=== PATIENT | male | born 1940 | race Caucasian/White ===

== ENCOUNTER → 2016-08-17 | Outpatient (CLI) | payer OTHER ==
--- NOTE | 2016-08-17 14:12 | CT ---
CT Chest Unenhanced History: Known ascending and descending thoracic aortic aneurysm. I71.9. Nonsmoker with no cancer hi story. Comparison: PA and lateral chest of February 12, 2016. CT angiogram chest from October 23, 2013. Technique: Axial unenhanced images were obtained through the chest. Coronal MIPs were performed. Dose reduction techniques were utilized. Findings: A benign 4-mm subpleural right upper lobe nodule (series 4 image 36) is unchanged. Scattere d scarring/atelectasis is unchanged. Moderate atherosclerosis is present in the LAD. Mild cardiomegal y is stable. Dual-lead left subclavian pacemaker leads overlie the right atrium and ventricle. Mitral annular calcifications are present. Minimal aortic valvular calcification is noted. Bovine arch conf iguration is noted. Aortic assessment is limited by the lack of contrast. The ascending aorta measure s 4.8 x 4.5 cm at the level of the main pulmonary artery, unchanged. The descending thoracic aorta at the same level measures 3.6 x 3.7 cm, unchanged. At the level of the celiac artery origin, the abdom inal aorta measures approximately 2.9 cm in maximal AP diameter, unchanged. A 1.6-cm subcutaneous nod ule in the anterior left shoulder (series 2 image 35) was outside the field of view on the previous s tudy. 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 Contiguous osteophytes in the thoracic spine are compatible with DISH. Bone island in T7 is again noted. A small hiatal hernia is present. Impression: 1. Stable aneurysmal dilatation of the ascending and descending thoracic aorta, with the ascending ao rta measuring up to 4.8 cm. 2. Coronary artery atherosclerosis in the LAD. 3. Indeterminate subcutaneous structure in the anterior left shoulder, possibly representing a sebace ous cyst. 4. Additional findings as above. Findings discussed with Dr. Vijay Randhawa's remote medical coder, August 17, 2016 at 1402 hours.
== END ==
LOC: CIMAGING 13:11
PROVIDERS: ATTEND Thoracic Surgery (Cardiothoracic Vascular Surgery)
DX: I71.2 Thoracic aortic aneurysm, without rupture (principal); I25.10 Atherosclerotic heart disease of native coronary artery without angina pectoris; R91.1 Solitary pulmonary nodule
CPT/HCPCS: 71250-PO

== ENCOUNTER 2016-10-20 06:38 | Day surgery (SDC) | payer OTHER ==
[2016-10-20] MEDS ORDERED: DIAZEPAM 5 MG TAB PO ONE (06:59)
[2016-10-20] MEDS ORDERED: FAMOTIDINE 20 MG TAB PO ONE (06:59)
[2016-10-20] MEDS ORDERED: diphenhydrAMINE 25 MG CAP PO ONE ×2 (06:59→07:10)
[2016-10-20] MEDS ORDERED: ASPIRIN EC 325 MG TAB PO ONE ×2 (06:59→07:10)
[2016-10-20] MEDS ORDERED: NS 1,000 ML IV ONE (06:59)
[2016-10-20] MEDS ORDERED: FAMOTIDINE 20 MG TAB ONE (07:10)
[2016-10-20] MEDS ORDERED: DIAZEPAM 5 MG TAB ONE (07:11)
[2016-10-20 07:18] LABS: % IMMATURE GRANULYOCYTES 0.6 % (0.0-1.1); ABSOLUTE IMMATURE GRANULOCYTES 0.04 10^3/uL (0.00-0.10); ADD DIFF? NO; ADD MORPH? NO; ADD SCAN? NO; ATYPICAL LYMPHOCYTE FLAG 0 (0-99); FRAGMENT RBC FLAG 0 (0-99); HEMATOCRIT 53.2 % (40.0-51.0); HEMOGLOBIN 18.3 g/dL (13.7-17.5); LEFT SHIFT FLG 0 (0-99); LIPEMIA HEMOLYSIS FLAG 90 (0-99); MEAN CELL HEMOGLOBIN 33.4 pg (27.9-34.1); MEAN CELL HEMOGLOBIN CONCENTR. 34.4 g/dL (32.4-36.7); MEAN CELL VOLUME 97.1 fL (81.5-99.8); MEAN PLATELET VOLUME 9.9 fL (8.7-11.7); PLATELET CLUMPS FLAG 10 (0-99); PLATELET COUNT 153 10^3/uL (150-400); RED BLOOD CELL COUNT 5.48 10^6/uL (4.40-6.38); RED CELL DISTRIBUTION WIDTH 14.4 % (11.5-15.2)
[2016-10-20] MEDS ORDERED: LIDOCAINE 1% 30 ML SDV ONE (07:27)
[2016-10-20 07:28] LABS: INR 1.12 (0.83-1.16); PROTIME(PATIENT) 14.3 SEC (12.0-15.0)
[2016-10-20] MEDS ORDERED: fentaNYL 100 MCG/2 ML INJ ONE (07:30)
[2016-10-20] MEDS ORDERED: IOPAMIDOL (ISOVUE 370) 100 ML BTL IV ONE ×2 (07:31→09:08)
[2016-10-20] MEDS ORDERED: MIDAZOLAM 2 MG/2 ML VIAL ONE (07:31)
[2016-10-20 08:20] LABS: ANION GAP 15 mEq/L (8-16); CALCIUM 10.6 mg/dL (8.5-10.4); CARBON DIOXIDE 18 mEq/l (22-31); CHLORIDE 113 mEq/L (97-110); CHOLESTEROL 135 mg/dL (140-220); CHOLESTEROL/HDL RATIO 3.38 RATIO (1.00-4.97); CREATININE 1.1 mg/dL (0.7-1.3); GLOMERULAR FILTRATION RATE > 60; GLUCOSE 117 mg/dL (70-100); HIGH DENSITY LIPOPROTEIN 40 mg/dL (40-65); LDL/HDL RATIO 1.73 RATIO (1.00-3.64); LOW DENSITY LIPOPROTEIN 69 mg/dL (80-100); MAGNESIUM 1.9 mg/dL (1.6-2.3); NON-HIGH DENSITY LIPOPROTEIN 95 mg/dL (90-129); POTASSIUM 4.5 mEq/L (3.5-5.2); SODIUM 146 mEq/L (134-144); TRIGLYCERIDE 130 mg/dL (40-150); VERY LOW DENSITY LIPOPROTEINS 26 mg/dL (8-25)
[2016-10-20] MEDS ORDERED: ONDANSETRON 4 MG/2 ML VIAL IVP PRN (10:30)
[2016-10-20] MEDS ORDERED: NITROGLYCERIN 0.4 MG BTL SL PRN (10:30)
[2016-10-20] MEDS ORDERED: HYDROCODONE/APAP 5/325 TAB PO PRN (10:30)
[2016-10-20] MEDS ORDERED: ATROPINE SULFATE 1 MG/10 ML SYR IVP PRN (10:30)
[2016-10-20] MEDS ORDERED: OXYCODONE/APAP 5/325 TAB PO PRN (10:30)
--- NOTE | 2016-10-20 10:36 | PDDXCAT ---
Diagnostic Cath Note - . Date: 10/20/16 Client Business Manager: Gm Indication: High-risk criteria on noninvasive testing (choose option below) High-risk criteria on non-invasive testing: stress-induced moderate-size multiple perfusion defects - Procedure Access: right groin Procedure: left heart catheterization, coronary angiography, left ventriculogram - Materials Left Heart Cath size: 6F Left Heart Cath materials: standard multipack (JL4, JR4, pigtail), JL5.0 - Findings-Left Heart Catheterization LM: Large vessel with bifurcation into the LAD and LCX. No appreciable luminal irregularities noted. LAD: Large vessel with calcification to the proximal vessel (20% luminal irregularities) with large, principal diagonal. No other luminal irregularities noted to the left system. LCX: Large vessel without significant luminal irregularities noted. There is a principal obtuse marginal noted without luminal irregularities noted. RCA: Codominant vessel with the LCX. No luminal irregularities noted. EDP: 15 mm Hg LVEF: 50% with subtle anterior wall hypokinesis Wall motion: subtle anterior wall hypokinesis Complications: none Estimated blood loss: <50ml Closure method: Angioseal Assessment: 75 y/o male wiht history of SSS/CHB s/p PPM, HTN, HLP, and ascending aortic aneurysm (unchanged by CT from the past), with abnormal stress testing. No critical CAD noted on angiogram today. Grossly normal left ventricular systolic ejection fraction. Plan: would have patient follow up with cardiology in one week, and maintain follow up with CT surgery Intervention: none Patient Problems: Problems Problem Status Onset Pacemaker Acute Third degree heart block Acute
--- NOTE | 2016-10-20 11:33 | CPEKG ---
Heart Rate: 60 RR Interval: 1000 P-R Interval: 195 QRSD Interval: 172 QT Interval: 468 QTC Interval: 468 P [place]: -73 QRS [place]: -26 T Wave [place]: 145 EKG Severity - ABNORMAL ECG - EKG Impression: ATRIAL-VENTRICULAR DUAL-PACED RHYTHM Electronically Signed By: Vijay Bai 21-Oct-2016 18:55:29
== END 2016-10-20 14:38 | disposition home or self-care (01) ==
LOC: FCATH 06:38
PROVIDERS: ATTEND Internal Medicine Cardiovascular Disease
PROC: B2151ZZ Fluoroscopy of Left Heart using Low Osmolar Contrast (ICD-10-PCS; principal; 2016-10-20)
PROC: B2111ZZ Fluoroscopy of Multiple Coronary Arteries using Low Osmolar Contrast (ICD-10-PCS; principal; 2016-10-20)
PROC: 4A023N7 Measurement of Cardiac Sampling and Pressure, Left Heart, Percutaneous Approach (ICD-10-PCS; principal; 2016-10-20)
DX: R94.39 Abnormal result of other cardiovascular function study (principal); Z95.0 Presence of cardiac pacemaker; I71.2 Thoracic aortic aneurysm, without rupture; I10 Essential (primary) hypertension; E78.5 Hyperlipidemia, unspecified
CPT/HCPCS: C1760; J1644; J2250; J3010; Q9967

== ENCOUNTER → 2017-01-18 | Outpatient (CLI) | payer OTHER | LOC: CIMAGING 09:04 | PROVIDERS: ATTEND Family Medicine | DX: M25.562 Pain in left knee (principal); M17.12 Unilateral primary osteoarthritis, left knee; M85.80 Other specified disorders of bone density and structure, unspecified site; I70.90 Unspecified atherosclerosis | CPT/HCPCS: 73560-PO ==

== ENCOUNTER → 2017-03-22 | Outpatient (CLI) | payer OTHER | LOC: CIMAGING 08:12 | PROVIDERS: ATTEND Thoracic Surgery (Cardiothoracic Vascular Surgery) | DX: I71.9 Aortic aneurysm of unspecified site, without rupture (principal); N28.9 Disorder of kidney and ureter, unspecified; N20.0 Calculus of kidney; I51.7 Cardiomegaly | CPT/HCPCS: 71250-PO ==

== ENCOUNTER → 2017-04-29 | Outpatient (CLI) | payer OTHER | LOC: CIMAGING 07:16 | PROVIDERS: ATTEND Specialist | DX: N28.1 Cyst of kidney, acquired (principal) | CPT/HCPCS: 76770-PO ==